=== PATIENT | female | born 1955 | race Caucasian/White ===

== ENCOUNTER 2023-05-01 16:57 | Emergency (ER) | payer OTHER, BC ==
[~2023-05-01] VITALS: Ht 152 cm; Wt 70.0 kg
--- NOTE | 2023-05-01 17:44 | ED Fall/Injury ---
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 PT DENIES LOC, DENIES TAKING BLOOD THINNERS AT THIS TIME. PT HAS 6CM LACERATION TO TOP OF SCALP. NO OTHER C/O VOICED. Source: patient Exam Limitations: no limitations History of Present Illness Date Seen by Provider: May 01, 2023 Time Seen by Provider: 17:40 Initial Comments Patient is a 67-year-old female who presents ED with head injury and left knee pain. She fell 1 hour ago while at work. She works at [employer]. She states she was making coffee she lost her balance attempted to catch the coffee fell forward hitting the top part of her scalp on the lower end of the kitchen door. No loss of conscious on blood thinners. This resulted in 6 cm scalp laceration. She did also land on her left knee. She was able to stand and bear weight. Was brought to the ED by POV. Not up-to-date on tetanus. She denies of any headache, dizziness, visual changes, neck pain, chest pain, shortness of breath or vomiting. She states she is moving all extremities without difficulties. History of right hip arthroplasty. She does have some pain to the left knee with ambulation. No obvious shortening. She denies taking thing for pain. Patient denies mid to lower back pain. No bowel or urine incontinence or saddle paresthesia. Allergies and Home Medications Allergies Coded Allergies: No Known Drug Allergies (Unverified , 05/01/23) Patient Home Medication List Home Medication List Reviewed: Yes Review of Systems Review of Systems Constitutional: No chills, No diaphoresis, No malaise, No weakness Eyes: Denies Blindness, Denies Blurred Vision, Denies Drainage, Denies Decreased Acuity Ears, Nose, Mouth, Throat: denies ear pain, denies ear discharge Respiratory: No cough, No dyspnea on exertion Cardiovascular: No chest pain Gastrointestinal: No abdominal pain, No diarrhea, No nausea, No vomiting Genitourinary: No decreased output, No discharge Musculoskeletal: No back pain; joint pain, muscle pain, muscle stiffness Skin: change in color All Other Systems Reviewed Negative Unless Noted: Yes Past Dtexdvs-Xwyaxf-Rmokkp Hx Patient Social History Tobacco Use?: No Use of E-Cig and/or Vaping dev: No Substance use?: No Alcohol Use?: Yes Alcohol Frequency: Once in a while Past Medical History Surgery/Hospitalization HX: HIP REPLACEMENT Physical Exam Vital Signs Vital Signs - First Documented 05/01/23 17:18 Temp 36.3 Pulse 78 Resp 20 B/P (MAP) 138/76 (96) Pulse Ox 99 O2 Delivery Room Air Capillary Refill : Less Than 3 Seconds Height, Weight, BMI Height: '" Weight: lbs. oz. kg; 30.00 BMI Method: General Appearance: WD/WN, no apparent distress HEENT: PERRL/EOMI, normal ENT inspection, TMs normal, pharynx normal, other (6 cm laceration to the top part of the scalp. No crepitus or step-off.) Neck: non-tender, full range of motion, supple, normal inspection Cardiovascular: regular rate, rhythm, no edema, no gallop, no JVD Respiratory: chest non-tender, lungs clear, normal breath sounds, no respiratory distress, no accessory muscle use Gastrointestinal: normal bowel sounds, non tender, soft, no organomegaly Extremities: other (Pain to the medial compartment of the left knee. Normal patella tracking. No pain with valgus or varus stress. Negative anterior posterior drawer test. 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, no motor/sensory deficits, alert, normal mood/affect, oriented x 3 Skin: other (6 cm laceration to the top scalp of the head.) Tori Coma Score Best Eye Response: (4) Open Spontaneously Best Verbal Response: (5) Oriented Best Motor Response: (6) Obeys Commands [place] Total: 15 Procedures/Interventions Wound Location: Scalp Other Wound Location top of scalp Wound Length (cm): 6 Wound's Depth, Shape: superficial Wound Explored: clean Irrigated w/ Saline (ccs): 300 Betadine Prep?: Yes Anesthesia: 1% Lidocaine Volume Anesthetic (ccs): 8 Staple Repair: Stapler 35W Number of Sutures: 8 Layer Closure?: 1 Sterile Dressing Applied?: Yes Progress/Results/Core Measures Results/Orders My Orders Orders - MIGUEL ARORA Ct Head/Cervical Spine Wo (05/01/23 17:38) Knee, Left, 3 Views (05/01/23 17:38) Lidocaine 1% Inj 20 Ml (Xylocaine 1% Inj (05/01/23 17:45) Dipht/Pertuss(Acell)/Tet Adult (Dipht/Pe (05/01/23 17:45) Medications Given in ED Current Medications Medications Dose Ordered Sig/Ame Route Start Time Stop Time Status Last Admin Dose Admin Diphtheria/ Tetanus/Acell Pertussis 0.5 ml ONCE ONCE IM 05/01/23 17:45 05/01/23 17:46 DC 05/01/23 17:40 0.5 ML Vital Signs/I&O 05/01/23 17:18 Temp 36.3 Pulse 78 Resp 20 B/P (MAP) 138/76 (96) Pulse Ox 99 O2 Delivery Room Air Blood Pressure Mean: 96 Departure Communication (PCP) Patient with a mechanical fall. Hitting the top of her scalp against the kitchen door. No loss of consciousness or on blood thinners. Nontrauma activation. Able to ambulate. No focal neural deficits. Has a 6 cm laceration to the top part of the scalp. Anesthetized with lidocaine. 8 waylon were placed here in the ED. Remove in 8 days. Topical Neosporin twice a day. She does have some tenderness to the left knee with limited range of motion. This is felt to be more chronic with a history of arthritis. She has no thoracic or lumbar midline tenderness. No chest pain short of breath or abdominal pain. CT scan of the head and cervical neck and x-ray of the left knee was ordered. CT scan head and cervical neck was negative for acute abnormality. X-ray of the left knee negative for acute fracture severe degenerative changes. Bleeding has stopped. She refused anything for pain. Update her tetanus. Return back to ED if pain worsens or continued bleeding from the site. Topical Neosporin twice a day. Return precautions were discussed. Impression Primary Impression: Scalp laceration Disposition: 01 HOME, SELF-CARE Condition: Stable Departure-Patient Inst. Decision time for Depature: 19:20 Referrals: RAQUEL DICK MD (PCP/Family) Primary Care Physician Patient Instructions: Laceration Repair With Waylon ED Add. Discharge Instructions: Remove waylon in 8 days. Topical Neosporin twice a day. If increasing bleeding, pain to return back to ED. All discharge instructions reviewed with patient and/or family. Voiced understanding. MIGUEL ARORA May 01, 2023 17:44
[2023-05-01] MEDS ORDERED: LIDOCAINE 1% INJ 20 ML VIAL INJ ONE (17:45)
[2023-05-01] MEDS ORDERED: Tetanus/Diphtheria/Pertussis (Acell) ADULT Vaccine 0.5 ML IM ONE (17:45)
--- NOTE | 2023-05-01 18:51 | Diagnostic Imaging Report ---
EXAMINATION: Left knee radiographs, 3 views. COMPARISON: None. HISTORY: 67-year-old female, left knee pain. FINDINGS: There is no identified acute fracture. There is severe patellofemoral compartment joint space loss. There is no knee joint effusion. IMPRESSION: 1. No acute bony abnormality of the left knee. 2. 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 Dictated by: Dictated on workstation # [id number]
--- NOTE | 2023-05-01 19:10 | Diagnostic Imaging Report ---
Procedure: CT head and CT cervical spine without contrast. Technique: Multiple contiguous axial images were obtained through the brain and cervical spine without the use of intravenous contrast. Sagittal and coronal reformations through the cervical spine were then performed. Auto Exposure Controls were utilized during the CT exam to meet ALARA standards for radiation dose reduction. Date: May 01, 2023. Indication: 67-year-old female, fall. Head and neck pain. Laceration of the scalp. Comparison: None. Findings: There is no identified skull fracture. The ventricles and additional CSF spaces are normal in size and configuration for patient age. There is no abnormal extra-axial fluid collection. There is no evidence of acute intracranial hemorrhage. There is no mass effect or midline shift. There are skin hiral at the level of the high scalp. There is no identified facet joint subluxation or dislocation. There is no asymmetric widening of the cervical disc heights. There is a long-standing or congenital fusion at C6-C7 as well as fusion across the C6-C7 facet articulations. There is no prominent prevertebral soft tissue swelling. The cervical disc heights are otherwise relatively well preserved. There is no identified acute fracture of the cervical spine. CT is limited for assessment of disc pathology as well as additional nonbony causes of pathology in the spinal canal. The visualized portions of the lung apices are clear. There are right thyroid nodules measuring up to at least 4.0 cm in size. There is a sclerotic lesion in the T3 vertebral body most likely reflecting benign bone island. Internal attenuation is 961 Hounsfield units. Impression: 1. No identified acute intracranial abnormality. 2. No identified acute fracture of the cervical spine. 3. 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 Dictated by: Dictated on workstation # [id number]
[2023-05-01 19:36] VITALS: BP 134/78
== END 2023-05-01 19:25 | disposition home or self-care (01) ==
LOC: EDUNIT# 16:57 → ER 17:05
DX: S01.01XA Laceration without foreign body of scalp, initial encounter (principal); Z23 Encounter for immunization; W18.30XA Fall on same level, unspecified, initial encounter; W22.09XA Striking against other stationary object, initial encounter; Y92.511 Restaurant or cafe as the place of occurrence of the external cause; Y99.0 Civilian activity done for income or pay
CPT/HCPCS: 12002; 70450; 72125; 73562; 90471; 90715

== ENCOUNTER 2023-05-08 13:37 | Emergency (ER) | payer OTHER, BC ==
[~2023-05-08] VITALS: Ht 152 cm; Wt 65.0 kg
[2023-05-08 14:40] VITALS: BP 135/69
== END 2023-05-08 14:39 | disposition home or self-care (01) ==
LOC: EDUNIT# 13:37 → ER 13:39
DX: Z48.02 Encounter for removal of sutures (principal)